=== PATIENT | male | born 1975 | race African-American/Black ===

== ENCOUNTER 2021-11-30 06:48 | Emergency (ER) | payer MEDICAID ==
[~2021-11-30] VITALS: Ht 185.4 cm; Wt 99.8 kg
--- NOTE | 2021-11-30 06:48 | NUR ---
CASIMIRO JENNINGS, TAKEN TO CHAIR B
[2021-11-30 06:49] VITALS: BP 129/79
--- NOTE | 2021-11-30 06:50 | NUR ---
CASIMIRO JENNINGS FOR PREBOOK EXAM. ABRASION NOTED TO TOP OF HEAD
[2021-11-30] MEDS ORDERED: BACI1PAC6 TP (06:58)
[2021-11-30 07:00] VITALS: BP 129/79
[2021-11-30] MEDS ORDERED: BACITRACIN OINT 500 UNITS/GM PKT TP ONE (07:00)
== END 2021-11-30 07:00 ==
LOC: MED 06:48
DX: S00.81XA Abrasion of other part of head, initial encounter (principal); Z02.89 Encounter for other administrative examinations; X58.XXXA Exposure to other specified factors, initial encounter; Y93.89 Activity, other specified; Y92.89 Other specified places as the place of occurrence of the external cause; Y99.8 Other external cause status
CPT/HCPCS: 99282; 99283